=== PATIENT | male | born 1975 | race Caucasian/White ===

== ENCOUNTER 2017-08-08 10:32 | Emergency (ER) | payer SELFPAY ==
[~2017-08-08] VITALS: Ht 172.7 cm; Wt 80.0 kg
[2017-08-08] MEDS ORDERED: KETOROLAC 30MG/ML VIAL IV STA (10:40)
[2017-08-08] MEDS ORDERED: ONDANSETRON HCL 4MG/2ML VIAL IV STA (10:40)
[2017-08-08] MEDS ORDERED: SODIUM CHLORIDE 0.9% 1,000 ML IV ONE (10:40)
[2017-08-08 11:19] LABS: CHLORIDE 105 mEq/L (98-107)
[2017-08-08 11:26] LABS: BASOPHILS % 0.2 % (0.0-2.0); EOSINOPHILS % 0.8 % (0.0-5.0); HEMATOCRIT. 43.9 % (42.0-52.0); HEMOGLOBIN. 14.9 g/dL (14.0-18.0); LYMPHOCYTES % 22.7 % (20.0-50.0); MEAN CORPUSCULAR HEMOGLOBIN 30.4 pg (28.0-32.0); MEAN CORPUSCULAR VOLUME 89.5 fL (80.0-94.0); MEAN PLATELET VOLUME 8.3 fl (7.4-10.4); MONOCYTES % 5.5 % (2.0-8.0); NEUTROPHILS % 70.8 % (40.0-76.0); PLATELET 251 x1000/uL (130-400); RED BLOOD CELL COUNT 4.91 mill/uL (4.7-6.1); RED CELL DISTRIBUTION WIDTH 13.1 % (11.6-14.6)
[2017-08-08 11:30] LABS: PROTHROMBIN TIME 10.1 sec (9.4-11.6)
[2017-08-08] MEDS ORDERED: CAFFEIN PO ONE (14:30)
[2017-08-08] MEDS ORDERED: CODEINE PO ONE (14:30)
[2017-08-08] MEDS ORDERED: BUTALBITAL PO ONE (14:30)
[2017-08-08] MEDS ORDERED: SUMATRIPTAN SUCCINATE 6MG/0.5ML VIAL SUBCUT ONE (14:30)
[2017-08-08] MEDS ORDERED: ASA PO ONE (14:30)
[2017-08-08 17:45] VITALS: BP 112/69
== END 2017-08-08 17:54 | disposition home or self-care (01) ==
LOC: ER 10:57
DX: R51 Headache (principal)
CPT/HCPCS: 36415; 70450; 80053; 85025; 85610; 96361; 96372; 96374; 96375; 99285; J1885; J2405; J3030; J7030

== ENCOUNTER 2018-08-20 10:35 | Emergency (ER) | payer SELFPAY ==
[~2018-08-20] VITALS: Ht 180.3 cm; Wt 110.0 kg
[2018-08-20] MEDS ORDERED: KETOROLAC 60MG/2ML VIAL IM ONE (13:00)
[2018-08-20 13:29] VITALS: BP 131/90
== END 2018-08-20 13:30 | disposition home or self-care (01) ==
LOC: ER 10:35
DX: M70.21 Olecranon bursitis, right elbow (principal); Y93.89 Activity, other specified
CPT/HCPCS: 96372; 99283; J1885

== ENCOUNTER 2018-08-24 07:19 | Emergency (ER) | payer SELFPAY ==
[~2018-08-24] VITALS: Ht 182.9 cm; Wt 105.0 kg
[2018-08-24] MEDS ORDERED: KETOROLAC 30MG/ML VIAL IM ONE (08:15)
[2018-08-24 09:40] VITALS: BP 143/93
== END 2018-08-24 09:43 | disposition home or self-care (01) ==
LOC: ER 07:19
DX: M10.062 Idiopathic gout, left knee (principal); Z88.0 Allergy status to penicillin
CPT/HCPCS: 73562; 96372; 99283; J1885